=== PATIENT | male | born 1990 | race Caucasian/White ===

== ENCOUNTER 2018-12-06 17:25 | Emergency (ER) | payer OTHER ==
[~2018-12-06] VITALS: Ht 175.3 cm; Wt 95.0 kg
[2018-12-06] MEDS ORDERED: CefTRIAXone SODIUM 1 GM/VIAL IM ONE (19:45)
[2018-12-06] MEDS ORDERED: LIDOCAINE/PF 1% 2 ML VIAL IM ONE (19:45)
[2018-12-06] MEDS ORDERED: AZITHROMYCIN 250 MG TABLET PO ONE (19:45)
[2018-12-06 20:07] VITALS: BP 132/80
== END 2018-12-06 20:08 | disposition home or self-care (01) ==
LOC: EMS 17:27
DX: N34.2 Other urethritis (principal); R03.0 Elevated blood-pressure reading, without diagnosis of hypertension
CPT/HCPCS: 87491; 87591; 96372; 99283; J0696; J3490